=== PATIENT | male | born 1965 | race Caucasian/White ===

== ENCOUNTER 2021-05-26 12:25 | Outpatient (REF) | payer OTHER, SELFPAY ==
--- NOTE | 2021-05-26 16:28 | MHC.AU.ANR ---
Adult Audiological Evaluation Date of Visit: 05/26/21 Reason for Appointment: Audiological evaluation due to history of hearing loss and hearing aid use. Mr. Meza notes that he was previously diagnosed with hearing loss and has used hearing aids in the past. He believes he was previously seen at [facility]'s audiology department. Mr. Meza notes that he has lost his previous set of hearing aids and is interested in obtaining new ones. He reports difficulties hearing and understanding speech in most situations. He states that he often asks for repetition, has trouble when people speak in a whisper, and turns his radio volume up loud. Does patient feel they have a hearing loss?: Yes If Yes, Which Ear?: Both Ears Has hearing been tested previously?: Yes Previous Hearing Test Results: Patient reports have his hearing tested previously in [place]. Records not available to be reviewed today. Ear History: Bothersome Tinnitus/Ringing/Noises in Ears: Both Ears Medical History: Medical History: Diabetes, Parkinson's Disease, microscopic hematuria, deep vein thrombosis Medication List: Trihexyphenidyl 2 mg, Xarelto 20 mg, FreeStyle Lite Meter kit, Atorvastatin 20 mg, sertraline 100 mg, metformin 1000 mg, Lantus Solostar U-100 insulin, lisinopril 20 mg, ropinirole 2 mg Otoscopy: Right Ear: Unremarkable Left Ear: Unremarkable Tympanometry: Tympanometry performed due to: To assess integrity of the middle ear system Right Ear: Normal Middle Ear System (Type A) Left Ear: Normal Middle Ear System (Type A) Hearing Evaluation: Transducer(s) Used: Insert Earphones, Bone Conduction Method: Conventional Audiometry Stimuli Used: Pure Tones Right Ear: Description of Hearing: Moderate sloping to moderately severe sensorineural hearing loss from 250-8000 Hz. Left Ear: Description of Hearing: Moderate sloping to moderately severe sensorineural hearing loss from 250-8000 Hz. Speech Recognition Threshold (SRT): Method Used: Monitored Live Voice Stimuli Used: Spondee Words Right Ear: 50 dBHL Left Ear: 40 dBHL Word Discrimination: Method: Recorded Lists Word Lists Used: NU-6 Right Ear: 92% at 80 dBHL Left Ear: 92% at 80 dBHL Recommendations: Audiological re-evaluation in one year. Trial with amplification is recommended. Medical clearance from a physician is required before fitting. See Hearing Aid Evaluation report for more information. Discussed hearing aid options. Mr. Meza is interested in rechargeable in-the-ear style hearing aids. Prior authorization will be requested from [facility] once medical clearance is received. Hearing aids will be ordered once prior authorization is received from [facility]. Diagnosis: Primary Diagnosis: H90.3 Bilateral Sensorineural Hearing Loss Services Performed: Services Performed: Comprehensive Audiological Evaluation (CPT 49628) Tympanometry (CPT 20541) Signature: Provider: Diana Wilson, CCC-A
--- NOTE | 2021-05-26 16:29 | MHC.AU.HAS ---
Hearing Aid Evaluation Date of Visit: 05/26/21 Historical Information: Description of Hearing: Moderate sloping to moderately severe sensorineural hearing loss bilaterally. Current personal amplification information, if applicable: Unknown Summary: Given the type and degree of Mr. Meza's hearing loss, binaural amplification is recommended to facilitate improved communication. Hearing aid options were discussed. Mr. Meza has Parkinson's disease which causes tremors. Recommend rechargeable in-the-ear hearing aids due to dexterity concerns. He is agreeable to this plan. Hearing Aid Prescription: Based on the individual?s shared listening needs, communication environments, dexterity, desire for connectivity, and personal preferences, the following prescription for amplification has been made: Right ear: Greige Goods Examiner: AutoESL Model: Enoc 1600 ITE-R Battery Size: Rechargeable Color: [place] Left ear: Left ear prescription to be same as Right Hearing Aid above: Greige Goods Examiner: Rosemary Model: Enoc 1600 ITE-R Battery Size: Rechargeable Color: [place] Action Taken/Action Needed: Earmold Impressions Taken. Prior authorization to be requested. Medical Clearance to be requested from PCP/ENT. Hearing Instrument Fitting to be scheduled when materials arrive. PA to be requested once MD clearance is received. Hearing aids to be ordered once PA received. Primary Diagnosis: H90.3 Bilateral Sensorineural Hearing Loss Signature: Provider: Diana Wilson, CCC-A
--- NOTE | 2021-05-26 16:30 | MHC.AU.MED ---
Medical Clearance for Hearing Instrumentation Date: 05/26/21 Patient Name: Joel Meza Date of : 1965 Referring Provider: Des Pillai, DO We have seen your patient on 05/26/21 and have determined that they are a candidate for amplification (See accompanying report). Specifically, they would benefit from: Hearing aid use in both ears There is a statute that addresses Medical Evaluation Requirements prior to fitting a patient with a hearing aid. According to [place] statute 265 CMR:6.03(1), (a) General. Except as provided in 265 CMR 6.03(1)(b), a disciplinary hearing officer shall not sell a hearing aid unless the prospective user has presented to the disciplinary hearing officer a written statement signed by a licensed physician that states that the patient's hearing loss has been medically evaluated and the patient may be considered a candidate for a hearing aid. The medical evaluation must have taken place within the preceding six months. Please note: Due to the [place] Statute referenced above, we cannot accept a signature other than that of a licensed physician. RECORD TABULATING CLERK and PA signatures cannot be accepted. I am in agreement with the above recommendation. There is no medical contraindication for hearing instrumentation. Physician Signature Date Physician Name (Printed)
== END 2021-05-26 12:26 | disposition home or self-care (01) ==
LOC: HO.SH 12:25
PROVIDERS: Visit Provider Internal Medicine
DX: Z46.1 Encounter for fitting and adjustment of hearing aid (principal); H90.3 Sensorineural hearing loss, bilateral
CPT/HCPCS: 92557; 92567; 92591; V5275

== ENCOUNTER 2021-06-29 08:54 | Outpatient (REF) | payer OTHER, SELFPAY | END 2021-06-29 08:55 | disposition home or self-care (01) | LOC: HO.HAP 08:54 | PROVIDERS: Visit Provider Internal Medicine | DX: Z46.1 Encounter for fitting and adjustment of hearing aid (principal); H90.3 Sensorineural hearing loss, bilateral | CPT/HCPCS: V5011; V5020; V5160; V5260 ==

== ENCOUNTER 2021-07-13 15:32 | Outpatient (REF) | payer OTHER, SELFPAY | END 2021-07-13 15:33 | disposition home or self-care (01) | LOC: HO.HAP 15:32 | PROVIDERS: Visit Provider Internal Medicine | DX: Z13.89 Encounter for screening for other disorder (principal) ==

== ENCOUNTER 2022-01-10 14:08 | Outpatient (REF) | payer SELFPAY | END 2022-01-10 14:09 | disposition home or self-care (01) | LOC: HO.HAP 14:08 | PROVIDERS: Absent Provider Internal Medicine; Visit Provider Internal Medicine | DX: Z13.89 Encounter for screening for other disorder (principal) ==

== ENCOUNTER 2022-01-25 07:53 | Outpatient (REF) | payer SELFPAY | END 2022-01-25 07:54 | disposition home or self-care (01) | LOC: HO.HAP 07:53 | PROVIDERS: Visit Provider Internal Medicine | DX: Z13.89 Encounter for screening for other disorder (principal) ==

== ENCOUNTER 2022-05-30 14:41 | Outpatient (REF) | payer OTHER, SELFPAY ==
--- NOTE | ~2022-05-30 | MR_ITS ---
EXAMINATION: MR BRAIN WITHOUT CONTRAST. CLINICAL INFORMATION: 56-year-old with cerebellar ataxia. COMPARISON: None TECHNIQUE: Multiplanar multisequence MR imaging of the brain was done without IV contrast. FINDINGS: Brain Volume: Within normal limits within the limitations of qualitative assessment. Structural: No malformations. Brain and Meninges: DWI sequence demonstrates no restricted diffusion. Specifically, there is no evidence for acute or subacute cerebral ischemia. There is a punctate FLAIR/T2 signal hyperintensity in the subcortical white matter of the left occipital lobe which is nonspecific. A few faint nonspecific punctate T2 hyperintensities are seen on both sides of the amita. On gradient refocused imaging, there are patchy zones of susceptibility-weighted signal loss which have a somewhat gyriform pattern located in the left parietal lobe suggesting a hemosiderin staining in this region from previous hemorrhage. There is a 4 mm low T1/high T2 signal intensity focus within the deep left frontal white matter adjacent to the frontal horn of the left lateral ventricle which has the appearance of a tiny remote infarct. Remainder of the brain is normal in morphology and signal intensity. No extra-axial fluid collections, space-occupying process or mass effect are identified. Ventricles and Subarachnoid Spaces: The ventricular system and subarachnoid spaces are within normal limits without hydrocephalus. Orbital Structures: The visualized orbital structures are grossly unremarkable within the limitations of the study. Vascular: Abnormal signal intensity is seen within the major dural venous sinuses including the transverse sinuses, sigmoid sinuses and superior sagittal sinus raising the possibility of diffuse thrombus. This does not appear to be acute based on signal characteristics, but CT venography is recommended to further assess and better define. Normal arterial signal voids are noted. Osseous Structures, Sinuses/Mastoids, Extracranial Soft Tissues: Unremarkable MR/MR head/brain wo con IMPRESSION: 1. Patchy zones of susceptibility-weighted signal loss with a gyriform pattern in the left parietal lobe suggesting hemosiderin staining from previous hemorrhage. Correlate with clinical history. 2. Diffusely abnormal signal in the major dural venous sinuses as described above suggesting the possibility of diffuse thrombus of indeterminate chronicity. Recommend contrast-enhanced CT venography to further assess this. 3. A few punctate T2 hyperintensities are seen in the amita and subcortical left occipital white matter which are nonspecific findings of indeterminate significance. These could reflect chronic ischemic microangiopathy. Probable tiny remote infarct in the deep left frontal white matter. The [facility] staff will call to confirm receipt of this report with acknowledgement of the findings and any recommendations.
== END 2022-05-30 14:42 | disposition home or self-care (01) ==
LOC: HO.MRI 14:41
PROVIDERS: Visit Provider Psychiatry & Neurology Neurology
DX: G11.9 Hereditary ataxia, unspecified (principal)
CPT/HCPCS: 70551

== ENCOUNTER 2022-06-19 09:40 | Outpatient (REF) | payer OTHER, SELFPAY ==
[2022-06-19 11:12] LABS: Blood Urea Nitrogen 32 mg/dL (9-16); Estimated Glomerular Filt Rate 46
== END 2022-06-19 09:41 | disposition home or self-care (01) ==
LOC: HO.LAB 09:40
PROVIDERS: PCP Internal Medicine; Visit Provider Psychiatry & Neurology Neurology
DX: G11.9 Hereditary ataxia, unspecified (principal)
CPT/HCPCS: 36415; 82565; 84520

== ENCOUNTER 2022-06-20 07:37 | Outpatient (REF) | payer OTHER, SELFPAY ==
--- NOTE | ~2022-06-20 | CT_ITS ---
EXAMINATION: CT ANGIOGRAM BRAIN, HEAD CLINICAL INFORMATION: Hereditary ataxia. COMPARISON: MRI scan of the brain 05/30/2022. TECHNIQUE: A noncontrast axial CT scan of the head was obtained. Test bolus sequences followed by intravenous administration 100 mL of Omnipaque 350 intravenous contrast. Helical imaging was performed in the axial plane from the skull base to the vertex. Delayed postcontrast imaging of the head was also performed. The data was processed at the medical technologist prn workstation for generation of MIP sequences. Three-dimensional volume rendered reformatted images were also generated at an offline 3-D workstation. The degree of stenosis determined by NASCET criteria. This CT examination was performed using dose optimization techniques as appropriate, variously including the following: *Automated exposure control *Adjustment of mA and/or kV according to patient size (this includes techniques or standardized protocols for targeted exams where dose is matched to indication/reason for exam; i.e. extremities or head) *Use of iterative reconstruction technique DLP: 2075 mGy-cm FINDINGS: CT Head: There is no evidence of acute intracranial hemorrhage or territorial infarction. No abnormal mass-effect or midline shift is seen. Morel to white matter differentiation is well preserved. No extra-axial fluid collections are identified. There is no abnormal enhancement. The ventricles and sulci are slightly commensurately prominent consistent with diffuse volume loss. There are mild patchy areas of low-attenuation in the periventricular and subcortical white matter, consistent with chronic microvascular ischemic changes. There are atheromatous calcifications of the bilateral proximal intradural vertebral arteries. There are no acute osseous findings. There are degenerative changes of the bilateral temporomandibular joints. The bilateral maxillary 3rd molar teeth are unerupted. The mastoid air cells and visualized portions of the paranasal sinuses are well-aerated. CTA/V Head: In the anterior circulation, the distal internal carotid arteries within the neck appear normal. The intracranial internal carotid arteries and their bifurcations appear normal. The middle and anterior cerebral arteries bilaterally demonstrate normal caliber with no evidence of focal stenosis, aneurysm or vascular malformation. There is normal arborization of the middle cerebral artery branches. The anterior communicating artery is normal. In the posterior circulation, the left vertebral artery is dominant. The vertebral arteries intradurally have normal caliber. The basilar artery is slightly irregular caliber. There are origins of the posterior cerebral arteries bilaterally. The posterior cerebral arteries are patent. There are areas of low attenuation in the superior sagittal sinus, corresponding to areas of abnormal signal on the prior MRI scan. The transverse sinuses appear to have uniform attenuation. CT/CT angio head IMPRESSION: 1. There are no acute bleeds or territorial infarcts. No masses are demonstrated. There is no abnormal enhancement. 2. There are chronic microvascular ischemic changes and there is diffuse volume loss. 3. There are filling defects in the superior sagittal sinus, corresponding to areas of abnormal signal on the prior MRI scan, consistent with likely chronic dural venous sinus thrombi. 4. There are no focal stenoses, aneurysms or vascular malformations in the intracranial circulation. 5. The [facility] staff will call to confirm receipt of this report with acknowledgement of the findings and any recommendations.
[2022-06-20] MEDS: iohexoL 350 MG/ML 100 ML INFUS..BTL IV (08:42)
== END 2022-06-20 07:38 | disposition home or self-care (01) ==
LOC: HO.CT 07:37
PROVIDERS: PCP Internal Medicine; Visit Provider Psychiatry & Neurology Neurology
DX: G11.9 Hereditary ataxia, unspecified (principal)
CPT/HCPCS: 70496; Q9967

== ENCOUNTER 2025-08-18 12:03 | Outpatient (AMB) | payer OTHER, SELFPAY ==
--- OUTSIDE RECORDS SUMMARY | 2024-12-05 09:30 | XMS_ITS ---
Author Organization [facility] Address [address] [place] [address] Care Team Providers Care Developmental Specialist Name Role Phone Freya BELL, Des Primary Care Provider Unav ailGisella Vogel Unavailable [phone] Seth Encounters Encounter Location Date Provider Diagnosis [address] [address] 12/05/2024 Gisella Hines Plan Of Treatment Next Appt Details Provider Name:Gisella rios, 10/30/2025 02:00:00 PM, [address] [facility], [place] [address], [place], [address], Progress Notes * Joel MEZADOB: 4 (60 yo M)Acc No.[id number]:12/05/2024 Progress Note Patient: Eusebio ALCANTARA [place] Provider: Beatrice Hines DPM :1965 A ge:59 Y S ex:Male Date:12/05/2024 Address:[address] [place] [address], [address]-[id number] Pcp:Des Pillai MD Subjective: * Chief Complaints: * [address] Seth[address] * Medical History: Objective: * Vitals: Assessment: Plan: * Treatment: * Images: * The named appointment provid er may or may not be the originator of this progress note, and it is not deemed complete until electronically signed by the appointment provider. Sign off status: Pending * Provider: Beatrice Hines, ROBI Date: 0 12/05/2024 Generated for Ray gaston/Kevin/Thomas on: 1 03:31 PM EDT
--- NOTE | 2025-08-18 12:40 | MHC.OFFVIS ---
Intake Visit Reasons: Parkinsons Disease Allergies adhesive Allergy (Unknown, Verified 08/14/25 10:10) Unknown HPI Comments Details: The patient is a 60-year-old male presenting with tremor exacerbation. He describes a longstanding cerebellar tremor that manifests primarily during passive activities such as attempting to sleep and when walking. The tremor was noted to be aggravated following a dental procedure, indicating a possible stress-induced trigger. Despite previous care from a family medicine physician, he has not consulted a neurologist for these symptoms in four years. He acknowledges taking trihexyphenidyl but disavows the use of metformin, although diagnosed with diabetes. The patient is also on an unspecified blood thinner, impacting possible management pathways. Anxiety complicates his clinical picture, with heightened nervousness and stress impacting his daily living. Additionally, the patient reports chronic sleep disruptions, with intermittent and non-restorative sleep cycles adversely affecting his overall well-being. [facility] Medical History (Updated 08/18/25 @ 12:45 by Rocío Don MD) Disorder of prostate, unspecified Recurrent falls DVT (deep venous thrombosis) Parkinson's disease Diabetes mellitus Review of Systems Narrative - Nervous System: Reports tremor, sleep disruption. Denies any other neurological symptoms. - Psychiatric: Reports anxiety, significant nervousness. Denies hallucinations. Physical Exam Neuro Other: Mental Status: Alert and oriented to person, place, and time. Normal attention. Normal spontaneous speech, fluency, and comprehension. Cranial Nerves: CN II: Visual ridley full to confrontation, visual acuity intact. CN III, IV, : Pupils equal, round, reactive to light and accommodation. Extraocular movements are normal. CN V: Facial sensation is normal. CN VII: Facial movements symmetrical. CN VIII: Hearing intact to bedside conversation is normal. CN IX, X: Palate elevates symmetrically. CN XI: Shoulder shrug and head turn symmetrical. CN XII: Tongue midline without atrophy or fasciculations. Kshc-[id number] bilateral hand amdgfz-az-[id number] tremor/ataxia. Gait is slow and cautious. Speech: With mild tremor. Assessment & Plan Assessment & Plan (1) Cerebellar ataxia: Comment: MRI brain WO at [facility] in [place] 2022: ?sinus thrombosis, mild to mod diff atrophy, minimal MVD, L post parietal gradient hypo density, ?AVM CTA brain at [facility] in May 2022: Mild cerebellar atrophy, chronic sup sag sinus thrombosis. Code(s): G11.9 - Hereditary ataxia, unspecified Category: Medical (2) Cerebellar tremor: Code(s): G25.2 - Other specified forms of tremor Category: Medical Plan Impression: Iaez-yd-ccgkevbx cerebellar type of tremor and gait disorder. This type of tremor may not respond to medicines as well. Primidone could not be given because of the blood thinner he is taking as it could interact. All try small dose of clonazepam, which might also help him with anxiety. Medications: New clonazepam 0.5 mg PO BEDTIME 90 tabs 0RF Coding Level of Care Code Est Pt Level 4 (60220) Diagnoses Cerebellar ataxia G11.9 Cerebellar tremor G25.2
== END 2025-08-18 12:52 | disposition home or self-care (01) ==
LOC: HO.HSM 12:04
PROVIDERS: PCP Internal Medicine; Visit Provider Psychiatry & Neurology Neurology
DX: G11.9 Hereditary ataxia, unspecified (principal); G25.2 Other specified forms of tremor
CPT/HCPCS: 99214

== ENCOUNTER → 2025-08-18 12:03 | Outpatient (BNVA) | payer OTHER, SELFPAY | PROVIDERS: PCP Internal Medicine; Visit Provider Psychiatry & Neurology Neurology | DX: G11.9 Hereditary ataxia, unspecified (principal); G25.2 Other specified forms of tremor | CPT/HCPCS: 99212 ==